=== PATIENT | male | born 1960 | race Caucasian/White ===

== ENCOUNTER 2019-08-07 12:57 | Emergency (ER) | payer MEDICAID ==
[~2019-08-07] VITALS: Ht 177.8 cm; Wt 64.4 kg
--- NOTE | 2019-08-07 13:10 | NUR ---
Note undone in EDM - 08/07/19 at 1400 by VANESSA PT SEBAS ARBOLEDA. PER REPORT, PT PULLED F/C. REINSERTED BY STAFF BUT NO URINE OUTPUT. PT AAOX4, VSS, BREATHING EVEN AND UNLABORED ON ROOM AIR W/ NAD NOTED. URINE OUTPUT AT 150 ML. PT CONNECTED TO THE MONITOR.
--- NOTE | 2019-08-07 13:10 | NUR ---
PT BIB PA. PER REPORT, PT PULLED F/C. REINSERTED BY STAFF BUT NO URINE OUTPUT. PT ALERT , VSS, BREATHING EVEN AND UNLABORED ON ROOM AIR W/ NAD NOTED. URINE OUTPUT AT 150 ML. PT CONNECTED TO THE MONITOR.
[2019-08-07 13:33] LABS: BASOPHILS # (AUTO) 0.1 /CMM (0.0-0.2); BASOPHILS % (AUTO) 0.6 % (0.0-2.0); EOSINOPHILS % (AUTO) 2.6 % (0.0-6.0); HEMATOCRIT 30 % (39-51); HEMOGLOBIN 9.5 g/dL (13.5-17.5); LYMPHOCYTES # (AUTO) 1.6 /CMM (0.8-4.8); LYMPHOCYTES % (AUTO) 16.8 % (20.0-44.0); MEAN CORPUSCULAR HGB CONC 32 g/dl (31.0-36.0); MEAN CORPUSCULAR VOLUME 93 fL (80-96); NEUTROPHILS # (AUTO) 6.9 /CMM (1.8-8.9); PLATELET COUNT (AUTO) 376 /CMM (150-450); RED BLOOD CELL COUNT(AUTO) 3.27 MIL/uL (4.5-6.0); WHITE BLOOD COUNT (AUTO) 9.8 K/uL (4.3-11.0)
[2019-08-07 13:40] LABS: CALCIUM, SERUM 9.3 mg/dL (8.5-10.1); CREATININE 2.5 mg/dL (0.6-1.3); POTASSIUM 5.3 mmol/L (3.5-5.1)
--- NOTE | 2019-08-07 13:40 | NUR ---
ARROYO CATHETER CHANGED. 16 F. OUTPUT 1300 ML
[2019-08-07 13:45] LABS: ALBUMIN 2.5 g/dL (3.4-5.0); BILIRUBIN,DIRECT 0.1 mg/dL (0.0-0.2); BILIRUBIN,TOTAL 0.2 mg/dL (0.2-1.0); TOTAL PROTEIN, SERUM 7.1 g/dL (6.4-8.2)
--- NOTE | 2019-08-07 13:54 | NUR ---
URINE COLLECTED AND SENT TO LAB
[2019-08-07 13:57] LABS: APPEARANCE,URINE Cloudy (CLEAR); BILIRUBIN,URINE Negative (NEGATIVE); BLOOD, URINE Moderate Ery/uL (NEGATIVE); COLOR,URINE Yellow (YELLOW); KETONES,URINE Negative (NEGATIVE); LEUKOCYTE ESTERASE ,URINE Large (NEGATIVE); NITRITE, URINE Positive (NEGATIVE); PH,URINE 6.5 (5.0-8.0); PROTEIN,URINE 100 mg/dl (NEGATIVE); UGLUCOSE Negative (NEGATIVE); UROBILINOGEN,URINE 0.2 EU/dL (0.2)
[2019-08-07 14:06] LABS: BACTERIA,URINE 3+ /HPF (None Seen); SQUAMOUS EPITHELIAL CELL,UR Few /HPF (None Seen); WBC,URINE TOO NUMEROUS TO COUN /HPF (0-3)
--- NOTE | 2019-08-07 14:09 | NUR ---
Paged Dr. España for admission
[2019-08-07] MEDS ORDERED: CEFTRIAXONE 1GM BAG (ER ONLY) 1 GM/50 ML PIGGYBACK IV ONE (14:30)
[2019-08-07] MEDS ORDERED: CEFTRIAXONE 1 G in IV D5W 50 ML IV ONE (14:30)
[2019-08-07] MEDS ORDERED: IV NS 0.9% 1,000 ML BAG IV ONE (14:30)
--- NOTE | 2019-08-07 14:44 | NUR ---
[facility] [id number] ETA TRIP#[id number]
--- NOTE | 2019-08-07 15:54 | NUR ---
REPORT GIVEN TO EMT FOR TRANSFER BACK TO FACILITY.
--- NOTE | 2019-08-07 15:59 | NUR ---
IV removed. Catheter intact and site benign. Pressure and 4x4 applied to site. No bleeding noted. Patient discharged to home in stable condition. Written and verbal after care instructions given to EMT verbalizes understanding of instruction.
[2019-08-07 16:00] VITALS: BP 111/52
== END 2019-08-07 16:00 ==
LOC: ER 13:03
DX: N39.0 Urinary tract infection, site not specified (principal); E11.22 Type 2 diabetes mellitus with diabetic chronic kidney disease; N18.9 Chronic kidney disease, unspecified; D64.9 Anemia, unspecified; N40.0 Benign prostatic hyperplasia without lower urinary tract symptoms; F20.9 Schizophrenia, unspecified; R41.82 Altered mental status, unspecified; K21.9 Gastro-esophageal reflux disease without esophagitis
CPT/HCPCS: 36415; 51702; 80048; 80076; 81001; 85025; 87040 ×2; 87077; 87086; 87186; 96365; 99284; J0696; J7030; J7060; 81000-TC